=== PATIENT | male | born 1955 | race Caucasian/White ===

== ENCOUNTER 2016-04-13 18:56 | Emergency (ER) | payer BC ==
[~2016-04-13] VITALS: Ht 172.7 cm; Wt 65.8 kg
--- NOTE | ~2016-04-13 | EKG ---
[place], [place] ELECTROCARDIOGRAM REPORT NAME: LILY SILVA JR UNIT #: [id number] ROOM: DOCTOR: GABO GOEL MD BIRTHDATE: [birth year] DOS: 04/13/2016 TIME: 19 hour and 47 minutes. EKG shows sinus tachycardia with a heart rate of 109 beats per minute. Normal cardiac axis. Slight intraventricular conduction delay. Right bundle-branch block pattern. Single premature ventricular contraction. Nonspecific ST-T abnormality. Needs clinically correlated. GABO GOEL MD CM:EKGRPT:ELECTROCARDIOGRAM REPORT [id number] 1802 GABO GOEL MD
[~2016-04-13 18:56] MED LIST: ADVAIR; ADVAIR 250/501 EA INH; ALBUTEROL INHALER; ALBUTEROL0.09 MG/A2 IH; AMLODIPINE BESYL5 MG PO; ANTIBIOTIC O500 U/GM TP; ASPI-COR81 M1 PO; ATIVAN PO; ATIVAN1 MG PO; AUGMENTIN 875 M1 TAB PO; BACTRIM DS 8001 TA1 PO; CEFUROXIME AXE250 MG PO; CIPRO500 MG PO; CIPRODEX 0.3%-7.5 ML OT; CLARITIN10 MG PO; CLINDAMYCIN HC300 MG PO; COLCHICINE0.5 MG PO; COUMADIN2.5 M1 PO; CYCLOBENZAPRINE10 MG PO; DELTASONE10 MG PO; DOXYCYCLINE HY100 M5 PO; DUONEB 3 MG/3 ML3 M1 INH; DUONEB 3 MG/3 ML3 M1 NEB; FLUCONAZOLE100 MG PO; HYDROCODONE BIT1 T11 PO; IBU800 M1 PO; LEVAQUIN750 M1 PO; LEVEMIR10 ML SC; LIDOCAINE HCL100 M1 MM; Motrin,Rufen800 MG PO; NAPROSYN500 MG PO; NICOTINE T21 MG/24 H TD; NORCO 325 MG-51 TAB PO; NORCO 7.5-3251 EACH PO; NORVASC10 MG PO; NYSTATIN100000 U/M PO; OXYGEN NAS; PERCOCET 325 MG1 TA4 PO; PERCOCET 325 MG1 TA7 PO; PLAVIX75 MG PO; PREDNISONE10 MG PO; PREDNISONE5 MG PO; PREDNISONE50 MG PO; PULMICORT RESP0.5 MG INH; SYMBICORT1 AE1 INH; SYNTHROID0.025 MG PO; Synthroid,Levo50 MCG PO; TRAMADOL HCL50 MG PO; ULTRAM50 MG PO; VENTOLIN H0.09 MG/AC INH; VIBRAMYCIN100 MG PO; VITAMIN D31000 IU PO; VITAMIN D32000 IU PO; VOLTAREN50 M1 PO; ZANTAC 150150 MG PO; ZITHROMAX Z PA250 MG PO; ZITHROMAX250 MG PO; [UNRECOGNIZED DRUG - OTHER]
[2016-04-13] MEDS ORDERED: OXYGEN NAS (19:22)
[2016-04-13 19:43] LABS: BASO # 0.1 10*3/uL (0.0-0.1); EOS # 0.3 10*3/uL (0.0-0.4); EOS % 2.6 % (1.0-4.0); HEMATOCRIT 48.5 % (42.0-52.0); HEMOGLOBIN 17.1 g/dl (14.0-18.0); IG # 0.1 10*3/uL (0.0-0.1); LYMPH # 1.2 10*3/uL (1.3-4.4); LYMPH % 11.6 % (27.0-41.0); MEAN CELL VOLUME 98.4 fl (80.0-94.0); MEAN CORPUSCULAR HGB 34.7 pg (27.0-31.0); MEAN CORPUSCULAR HGB CONC 35.3 g/dl (33.0-37.0); MEAN PLATELET VOLUME 9.4 fl (9.6-12.3); MONO # 1.1 10*3/uL (0.1-1.0); MONO % 10.9 % (3.0-9.0); NEUT # 7.5 10*3/uL (2.3-7.9); NEUT % 73.2 % (47.0-73.0); PLATELET COUNT AUTOMATED 238 10*3/uL (130-400); RED BLOOD COUNT 4.93 10*6/uL (4.50-5.90); RED CELL DISTRI WIDTH 12.3 % (0-14.5); WHITE BLOOD COUNT 10.2 10*3/uL (4.8-10.8)
[2016-04-13 19:52] LABS: PROTHROMBIN TIME 10.1 SECONDS (9.0-12.4)
[2016-04-13 20:00] LABS: ALBUMIN 3.9 gm/dl (3.1-4.5); ALKALINE PHOSPHATASE 60 U/L (45-117); BILIRUBIN, TOTAL 1.5 mg/dl (0.2-1.0); BUN 9 mg/dl (7-24); CARBON DIOXIDE 23 mmol/L (21-32); CHLORIDE 97 mmol/L (98-107); EST GLOM FILT AFRICAN AMERICAN > 60 ml/min; GLUCOSE 111 mg/dL (65-99); MAGNESIUM 1.8 mg/dL (1.5-2.1); POTASSIUM 3.6 mmol/L (3.5-5.1); SGOT/AST 24 IU/L (3-35); SGPT/ALT 35 U/L (12-78); SODIUM 137 mmol/L (136-145); TOTAL PROTEIN 7.7 gm/dL (6.4-8.2)
[2016-04-13 20:01] LABS: TROPONIN I < 0.015 ng/ml (<0.5)
[2016-04-13] MEDS ORDERED: PREDNISONE20 M1 PO (21:17)
[2016-04-13] MEDS ORDERED: LEVOFLOXACIN500 MG PO (21:17)
== END 2016-04-13 21:23 | disposition home or self-care (01) ==
LOC: ED 18:56
PROVIDERS: Emergency Medicine Emergency Medical Services
DX: J44.1 Chronic obstructive pulmonary disease with (acute) exacerbation (principal); F17.200 Nicotine dependence, unspecified, uncomplicated; J96.01 Acute respiratory failure with hypoxia; Z98.41 Cataract extraction status, right eye; Z98.890 Other specified postprocedural states; Z79.82 Long term (current) use of aspirin; Z88.0 Allergy status to penicillin

== ENCOUNTER 2016-07-25 14:54 | Inpatient (IN) | payer BC, OTHER ==
[~2016-07-25] VITALS: Ht 172.7 cm; Wt 70.8 kg
--- NOTE | ~2016-07-25 | PR ---
[place], [place] PROGRESS NOTE NAME: [facility] JR [id number] UNIT #: [id number] ROOM: 408 DOCTOR: RADHA REAL,OUSMANE Oneill BIRTHDATE: [birth year] DOS: 07/28/2016 ADDENDUM Seen on 07/26/2016. After reviewing the chart, labs, radiographs, I agree with the above plans as outlined in the ID consult. We will follow the patient up clinically and adjust accordingly. OUSMANE GARCIA MD CM:PNTRANS [id number] OUSMANE GARCIA MD 07/28/16 1231 interface
--- NOTE | ~2016-07-25 | PR ---
[place], [place] PROGRESS NOTE NAME: LILY SILVA JR [facility] #: [id number] UNIT #: [id number] ROOM: 408 DOCTOR: GABO GOEL MD BIRTHDATE: [birth year] DOS: 07/27/2016 IMPRESSION: 1. The patient continues to have pain and swelling in his left hand and wrist, and he is being treated with IV vancomycin and meropenem, and being followed by Infectious Diseases and Surgery. 2. End-stage advanced chronic obstructive pulmonary disease with acute over chronic respiratory failure with centrilobular emphysema, stable at this time. 3. Chronic lumbar spondylosis with chronic lower back pains controlled with treatment. 4. Hypothyroidism, being replaced with thyroid supplements. GABO GOEL MD CM:PNTRANS [id number] GABO GOEL MD 07/28/16 0306 interface
--- NOTE | ~2016-07-25 | CON ---
[place], [place] REPORT OF CONSULTATION [id number] UNIT #: [id number] ROOM: 408 DOCTOR: TRA DUNCAN,JUNE BIRTHDATE: [birth year] DOS: HISTORY OF PRESENT ILLNESS: The patient is a 61-year-old male who had fallen at home in his garage on the and subsequently developed severe pain of the left wrist as well as swelling and he does have an abrasion on the left palm, which is fairly dry, no cultures have been obtained other than blood cultures, his blood cultures are negative. He again developed swelling, erythema, and pain of the palmar portion of the wrist and proximal hand. He has been afebrile. He has been receiving vancomycin, Merrem, and clindamycin. He is allergic to PENICILLIN. ID is consulted for left wrist and arm cellulitis. He does state it has been improving since he was admitted and started on antibiotics. He had a CT of the left upper extremity last night that did not demonstrate any fracture or necrotizing fasciitis, which was the concern originally when he was admitted. He has been seen by Dr. Chairez. PAST MEDICAL HISTORY: As above as well as COPD, peripheral vascular disease, tobacco and alcohol abuse. SOCIAL HISTORY: Normally lives at home. He smokes approximately a pack of cigarettes per day since he was a teenager. Alcoholic, he drinks approximately 10 beers every other day. Denies any illicit drug use. FAMILY MEDICAL HISTORY: Both parents are . Other history is unknown to the patient, not pertinent to chief complaint. ALLERGIES: Include PENICILLINS. CURRENT MEDICATIONS: Include vancomycin, Merrem, clindamycin, Zofran, [place], DuoNebs. LABORATORY DATA: Showed WBCs 10.2, platelets 279. BUN 5, creatinine 0.83. LFTs within normal limits. Albumin 4.1. REVIEW OF SYSTEMS: Alert and oriented. Denies any fevers, chills, no nausea or vomiting, no diarrhea, no rash or itch. No cough or shortness of breath. No headache or dizziness. No chest pain or palpitations. No peripheral edema, other than mild edema of the left wrist. He continues to complain of severe pain of the left wrist as well as difficulty with moving hand and wrist. Review of systems is otherwise unremarkable. PHYSICAL EXAMINATION: VITAL SIGNS: Show temperature 98.2, pulse 83, respirations 20, BP 132/65. GENERAL: A 61-year-old male who appears older than his stated age, in no acute distress. HEAD, EYES, EARS, NOSE, AND THROAT: Normocephalic, no thrush. Only few residual teeth. NECK: Supple. LUNGS: Diminished bilaterally with rhonchi. Respirations even and unlabored. HEART: Regular rhythm. No murmur appreciated. ABDOMEN: Soft, nondistended, positive bowel sounds. [place], [place] REPORT OF CONSULTATION NAME: LILY SILVA JR UNIT #: [id number] ROOM: 408 DOCTOR: TRA DUNCAN,JUNE BIRTHDATE: [birth year] EXTREMITIES: No lower extremity edema or deformity. Left wrist has mild swelling and mild erythema over the inner wrist with inability to do any range of motion of the wrist due to pain. Also, has limited range of motion of fingers due to pain. He has a small abrasion, which is rather dry on the left proximal palm. Erythema does not appear to extend up the forearm at this point. SKIN: Otherwise, warm, dry, and free of rashes. ASSESSMENT: Left upper extremity cellulitis due to trauma, status post fall. All scans have been negative for abscess or foreign body as well as fracture. PLAN: At this point in time, we will continue the Merrem and vancomycin, stop the clindamycin, gram-negative coverage is continued due to fracture that has resulted from trauma with fall on garage floor. Unfortunately, the wound is rather dry and would not yield a viable culture. Case is discussed with Dr. Ousmane Garcia. JUNE DAKOTA DUTTA OUSMANE GARCIA MD CM:CONSTR:REPORT OF CONSULTATION 1708 07/28/16 0342 interface
--- NOTE | ~2016-07-25 | WRIGHTHP ---
[place], [place] PATIENT HISTORY AND PHYSICAL EXAM NAME: LILY SILVA JR [facility] #: [id number] UNIT #: [id number] ROOM: 408 DOCTOR: GABO GOEL MD BIRTHDATE: [birth year] DOS: 07/26/2016 HISTORY OF PRESENT ILLNESS: The patient is a 61-year-old gentleman with a past medical history of, 1. Severe underlying chronic obstructive pulmonary disease with chronic respiratory failure. 2. Lumbar spondylosis with osteoarthritis and chronic lower back pains with bulging disk at L4-L5. 3. Hypothyroidism. 4. Severe peripheral vascular disease, status post angioplasty involving the right lower extremity with chronic pains. 5. History of alcohol abuse in the past. 6. History of nicotine smoke dependence. The patient presented with a fall at home the day before admission resulting in a puncture wound to the base of the right hand and he had rapidly spreading infection over his right wrist with significant pain and streaking and going over his right forearm towards his elbow with significant pains and difficulty in closing his right hand. The patient was sent to the Emergency Department and an x-ray was performed, which did not show any fracture and then after initial treatment with antibiotics, he was admitted for further management. The patient still has significant pain in his left hand, forearm and wrist. No complaints of chest pain, no increasing shortness of breath, no other GI or urinary symptoms. SYSTEMS REVIEW: LUNGS: No increasing shortness of breath or wheezing. GASTROINTESTINAL: No nausea, vomiting, diarrhea, or constipation. CARDIOVASCULAR SYSTEM: No chest pains or palpitations. FAMILY HISTORY: Noncontributory. HOME MEDICATIONS: DuoNebs, calcium, Vicodin. ALLERGIES: KNOWN ALLERGIES TO PENICILLIN. PHYSICAL EXAMINATION: GENERAL: Alert and oriented x 3, in no visible distress. VITAL SIGNS: Blood pressure 132/65, heart rate 83 beats per minute, breathing 20 times per minute, temperature 98.2 degrees Fahrenheit. HEENT AND NECK: Extraocular movements are intact. Sclerae are anicteric. Oral mucosa is moist and clean. No obvious facial weakness. Neck is supple without any lymphadenopathy. No thyromegaly. No JVD. No carotid arterial bruits. LUNGS: Decreased breath sounds all over. CARDIOVASCULAR SYSTEM: Heart rate is regular in rate and rhythm. S1 and S2 normally audible. No significant murmur or any other abnormal cardiac sounds. ABDOMEN: Soft, nontender. No obvious organomegaly. Bowel sounds are present. No obvious herniation. EXTREMITIES: The patient's base of left hand with left wrist showing some swelling, redness and tenderness. No fluctuation. [place], [place] PATIENT HISTORY AND PHYSICAL EXAM NAME: LILY SILVA JR UNIT #: [id number] ROOM: [facility] DOCTOR: GABO GOEL MD BIRTHDATE: [birth year] CENTRAL NERVOUS SYSTEM: Alert and oriented x 3. Cranial nerves II-XII are intact. Speech is normal. The patient is able to move all extremities. Normal muscle strength. Deep tendon reflexes are equal on both sides. Plantars were downgoing. IMPRESSION: The patient with cellulitis and some deep tissue infection with difficulty with closing the left hand with spreading infection, which apparently is getting controlled with present antibiotic treatment with meropenem and IV vancomycin. Clindamycin has been stopped. We will continue treatment. 1. Endstage chronic obstructive pulmonary disease with oxygen dependence, stable at this time and chronic respiratory failure and centrilobular emphysema. 2. Chronic lumbar spondylosis with chronic lower back pains controlled with pain meds. 3. Hypothyroidism, replaced with thyroid supplements. GABO GOEL MD CM:HISPHYS:PATIENT HISTORY AND PHYSICAL EXAMINATION 27 02 GABO GOEL MD 07/26/16 2004 interface
[~2016-07-25 14:54] MED LIST changes: +LEVOFLOXACIN500 MG PO; +PREDNISONE20 M1 PO
[2016-07-25 15:24] VITALS: BP 162/88
[2016-07-25 15:58] LABS: BASO # 0.1 10*3/uL (0.0-0.1); EOS # 0.1 10*3/uL (0.0-0.4); EOS % 1.1 % (1.0-4.0); HEMATOCRIT 46.6 % (42.0-52.0); HEMOGLOBIN 16.7 g/dl (14.0-18.0); IG # 0.1 10*3/uL (0.0-0.1); LYMPH # 1.8 10*3/uL (1.3-4.4); LYMPH % 17.3 % (27.0-41.0); MEAN CELL VOLUME 95.5 fl (80.0-94.0); MEAN CORPUSCULAR HGB 34.2 pg (27.0-31.0); MEAN CORPUSCULAR HGB CONC 35.8 g/dl (33.0-37.0); MEAN PLATELET VOLUME 8.9 fl (9.6-12.3); MONO # 0.9 10*3/uL (0.1-1.0); MONO % 8.9 % (3.0-9.0); NEUT # 7.3 10*3/uL (2.3-7.9); NEUT % 71.2 % (47.0-73.0); PLATELET COUNT AUTOMATED 279 10*3/uL (130-400); RED BLOOD COUNT 4.88 10*6/uL (4.50-5.90); RED CELL DISTRI WIDTH 13.2 % (0-14.5); WHITE BLOOD COUNT 10.2 10*3/uL (4.8-10.8)
[2016-07-25 16:06] LABS: PROTHROMBIN TIME 10.4 SECONDS (9.0-12.4)
[2016-07-25 16:11] LABS: ALBUMIN 4.1 gm/dl (3.1-4.5); ALKALINE PHOSPHATASE 63 U/L (45-117); BUN 5 mg/dl (7-24); CARBON DIOXIDE 26 mmol/L (21-32); CHLORIDE 98 mmol/L (98-107); EST GLOM FILT AFRICAN AMERICAN > 60 ml/min; GLUCOSE 124 mg/dL (65-99); SGOT/AST 20 IU/L (3-35); SGPT/ALT 19 U/L (12-78); SODIUM 135 mmol/L (136-145); TOTAL PROTEIN 7.9 gm/dL (6.4-8.2)
[2016-07-25 17:45] VITALS: BP 125/81
[2016-07-25 18:29] VITALS: BP 131/86
[2016-07-25 19:00] VITALS: BP 154/91
[2016-07-25] MEDS ORDERED: ZANTAC 300300 MG PO (19:03)
[2016-07-25 20:00] VITALS: BP 152/78
[2016-07-26] VITALS: BP 114/71
[2016-07-26 08:00] VITALS: BP 109/68
[2016-07-26 12:00] VITALS: BP 155/92
[2016-07-26 16:00] VITALS: BP 132/65
[2016-07-26 20:00] VITALS: BP 148/78
[2016-07-26 23:37] VITALS: BP 144/84
[2016-07-27 08:00] VITALS: BP 139/80
[2016-07-27 12:00] VITALS: BP 155/86
[2016-07-27 16:00] VITALS: BP 141/78
[2016-07-27 20:00] VITALS: BP 128/76
== END 2016-07-27 21:57 | disposition short-term general hospital (02) | DRG 603 ==
LOC: ED 14:54 → EDHOLD 17:39 → 4E 18:18
PROVIDERS: Nurse Practitioner Family
DX: L03.116 Cellulitis of left lower limb (principal); J96.10 Chronic respiratory failure, unspecified whether with hypoxia or hypercapnia; E03.9 Hypothyroidism, unspecified; J43.2 Centrilobular emphysema; F17.200 Nicotine dependence, unspecified, uncomplicated; F17.210 Nicotine dependence, cigarettes, uncomplicated; M47.896 Other spondylosis, lumbar region; G89.29 Other chronic pain; M54.5 Low back pain; Z88.0 Allergy status to penicillin; Z91.81 History of falling; Z87.828 Personal history of other (healed) physical injury and trauma

== ENCOUNTER 2016-08-17 13:19 | Emergency (ER) | payer BC, OTHER ==
[~2016-08-17] VITALS: Ht 172.7 cm; Wt 68.0 kg
[~2016-08-17 13:19] MED LIST changes: +ZANTAC 300300 MG PO
== END 2016-08-17 15:06 | disposition home or self-care (01) ==
LOC: ED 13:19
DX: S90.31XA Contusion of right foot, initial encounter (principal); F17.200 Nicotine dependence, unspecified, uncomplicated; J44.9 Chronic obstructive pulmonary disease, unspecified; E03.9 Hypothyroidism, unspecified; Z88.0 Allergy status to penicillin; Z79.899 Other long term (current) drug therapy; Z79.82 Long term (current) use of aspirin; X58.XXXA Exposure to other specified factors, initial encounter; Y93.89 Activity, other specified; Y92.89 Other specified places as the place of occurrence of the external cause; Y99.8 Other external cause status

== ENCOUNTER 2016-08-29 17:37 | Inpatient (IN) | payer BC, OTHER ==
[~2016-08-29] VITALS: Ht 172.7 cm; Wt 69.4 kg
--- NOTE | ~2016-08-29 | DS ---
[place], [place] DISCHARGE SUMMARY NAME: LILY SILVA JR UNIT #: [id number] ROOM: 511 DOCTOR: MANASA REALGABO Price BIRTHDATE: [birth year] DOS: 08/31/2016 DISCHARGE DIAGNOSES: 1. Exacerbation of severe underlying chronic obstructive pulmonary disease with acute over chronic respiratory failure, chronic lumbar spondylosis with chronic lower back pains. 2. Nicotine smoke dependence. 3. Hypothyroidism. 4. Severe peripheral vascular disease, status post angioplasty involving the right lower extremity and chronic pains. 5. History of alcohol dependence in the past. HOSPITAL COURSE: The patient was admitted with acute respiratory failure and treated with BiPAP, bronchodilators, corticosteroids and oxygen. The patient presented with acute over chronic respiratory failure. He normally requires oxygen at home. Despite of advanced lung disease, still smokes up to 1 pack of cigarettes a day. The patient was admitted and started on nicotine patch and encouraged to stop smoking cigarettes. With use of corticosteroids, oxygen and antibiotics his breathing has improved and he appears to be at his baseline now, so he will be discharged to home on tapering down dose of prednisone and he will also take ciprofloxacin and continue his nebulizer treatment and oxygen and follow up with me on Thursday. Sputum cultures were ordered and grew normal ashley. Blood cultures were negative. Consult with pulmonary primary health care nurse, Dr. Mora, was obtained. Generalized anxiety disorder. The patient continued on lorazepam, which he was taking at home. Benign essential hypertension. Blood pressures are controlled. I continued his amlodipine. LABORATORY DATA: Blood gases are baseline prior to discharge. DISCHARGE MANAGEMENT: Nicotine patch 21 mg daily, famotine 10 mg a day, Plavix 75 mg a day, aspirin 81 mg a day, amlodipine 10 mg a day, Medrol Dosepak, levothyroxine 50 mcg daily, Symbicort b.i.d., DuoNeb every 4 hours as needed, Cipro 500 mg twice a day for a week, Vicodin q.i.d. p.r.n., lorazepam 1 mg t.i.d. p.r.n. for anxiety. Follow up with me in the office on Thursday. [place], [place] DISCHARGE SUMMARY NAME: LILY SILVA JR UNIT #: [id number] ROOM: 511 DOCTOR: GABO GOEL MD BIRTHDATE: [birth year] GABO GOEL MD CM:MICHAEL 1649 1730 GABO GOEL MD 08/31/16 1729 interface
--- NOTE | ~2016-08-29 | WRIGHTHP ---
[place], [place] PATIENT HISTORY AND PHYSICAL EXAM NAME: LILY SILVA JR [facility] #: [id number] UNIT #: [id number] ROOM: 511 DOCTOR: GABO GOEL MD BIRTHDATE: [birth year] DOS: 08/29/2016 HISTORY OF PRESENT ILLNESS: The patient is a 61-year-old gentleman with a past medical history of: 1. Advanced end-stage COPD with chronic respiratory failure, on oxygen dependence. 2. Nicotine smoke dependence. 3. Chronic lumbar spondylosis with chronic lower back pains. 4. Hypothyroidism. 5. Peripheral vascular disease, status post angioplasty involving right lower extremity and chronic pains. 6. History of alcohol dependence in the past. The patient presented to Emergency Department with increased shortness of breath and cough with purulent sputum, starting yesterday. No complaint of any chest pain, dizziness or fainting episode. The patient was in acute respiratory failure in the Emergency Department and required BiPAP, nebulizer treatments, antibiotics and corticosteroids. He was moved to ICU for further treatment. The patient says he is feeling much better, but still has significant amount of purulent sputum. REVIEW OF SYSTEMS: CARDIOVASCULAR: No chest pain or palpitation. GASTROINTESTINAL: No nausea, vomiting, diarrhea, constipation. LUNGS: Increased shortness of breath and wheezing. FAMILY HISTORY: Noncontributory. HOME MEDICATIONS: Nicotine patch, Pepcid, Plavix, aspirin, amlodipine, levothyroxine, Symbicort, DuoNebs, Vicodin, lorazepam. PHYSICAL EXAMINATION: GENERAL: Alert and oriented x3, in no visible distress. HEENT AND NECK: Extraocular movements are intact. Sclerae are anicteric. Oral mucosa is moist and clean. No obvious facial weakness. Neck is supple without any lymphadenopathy. No thyromegaly. No JVD. No carotid arterial bruits. LUNGS: Generalized expiratory wheezing all over and decreased breath sounds on lung auscultation. CARDIOVASCULAR SYSTEM: Heart rate is regular in rate and rhythm. S1 and S2 normally audible. No significant murmur or any other abnormal cardiac sounds. ABDOMEN: Soft, nontender. No obvious organomegaly. Bowel sounds are present. No obvious herniation. EXTREMITIES: Without significant cyanosis or edema. Warm to touch. CENTRAL NERVOUS SYSTEM: Alert and oriented x3. Cranial nerves II-XII are intact. Speech is normal. The patient is able to move all extremities. Normal muscle strength. Deep tendon reflexes are equal on both sides. Plantars were downgoing. IMPRESSION AND PLAN: 1. Acute over chronic respiratory failure, treated with BiPAP, nebulizer treatments, oxygen and corticosteroids and he is already starting to feel [place], [place] PATIENT HISTORY AND PHYSICAL EXAM [id number] UNIT #: [id number] ROOM: 511 DOCTOR: GABO GOEL MD BIRTHDATE: [birth year] better. I will transfer him to intermediate monitored bed and follow him closely. The patient maintains a DO NOT INTUBATE code status. The patient is being treated with nebulizers, oxygen, DuoNebs, corticosteroids and antibiotics and Dr. Mora, the telephone lineworker, is following him. 2. Check sputum cultures. 3. Benign essential hypertension. Continue amlodipine. Monitor his blood pressures. 4. Generalized anxiety disorder treated with p.r.n. lorazepam, which has been continued. 5. Severe peripheral arterial disease. The patient continued on aspirin and Plavix and chronic lower extremity pains which is controlled with Vicodin. GABO GOEL MD CM:HISPHYS:PATIENT HISTORY AND PHYSICAL EXAMINATION 1441 1550 GABO GOEL MD 08/30/16 1549 interface
--- NOTE | ~2016-08-29 | PR ---
[place], [place] PROGRESS NOTE NAME: LILY SILVA JR [facility] #: [id number] UNIT #: [id number] ROOM: 511 DOCTOR: ALCIDES JORGENSEN MD,MELISSA BIRTHDATE: [birth year] DOS: 08/31/2016 SUBJECTIVE: He has been transferred from the intensive care unit to telemetry floor. The patient yesterday ____ he has been noted awake and alert at this time without any acute distress. The shortness of breath and cough of the patient has been noted decreased. Denies any symptoms of chest pain. OBJECTIVE: VITAL SIGNS: For the patient, which has been recorded showed the temperature as normal. The respiratory rate of the patient recorded as 20, heart rate of 90, blood pressure 129/68. The pulse oxygen saturation of the patient was noted as 95% on 3 liters nasal cannula. HEENT: Showed no acute change. NECK: Supple. CARDIOVASCULAR: S1, S2 audible. LUNGS: The patient was noted without any wheeze or crackles at the present time. ABDOMEN: Soft and nontender. LABORATORY DATA: Blood culture for the patient showed no bacterial growth from the 16th of this month. Arterial blood gas for the patient on 4 liters that was done yesterday showed pH of 7.44, pCO2 of 35, pO2 of 73.7. IMPRESSION: The patient who has been currently noted with acute severe hypoxic respiratory failure. The patient with acute exacerbation of chronic obstructive pulmonary disease, which has been improving gradually. PLAN OF TREATMENT: Continue bronchodilators and corticosteroids at current dose. Usual care. BiPAP use of the patient is agreeable with the patient. MELISSA MCGRATH MD CM:PNTRANS 1008 26 MELISSA JORGENSEN MD 08/31/162225 interface
--- NOTE | ~2016-08-29 | CON ---
[place], [place] REPORT OF CONSULTATION NAME: LILY SILVA JR [facility] #: [id number] UNIT #: [id number] ROOM: 511 DOCTOR: MELISSA ELIZABETH MD BIRTHDATE: [birth year] DOS: 08/30/2016 REQUESTING PHYSICIAN: Dr. Hawkins. REASON FOR CONSULTATION: Assess the patient for acute respiratory failure. HISTORY OF PRESENT ILLNESS: This is a 61-year-old white male with history of chronic nicotine dependency as well as a history of chronic hypoxic respiratory failure with COPD, presented to the hospital and admitted to the hospital under the care of Dr. Hawkins. The patient presented to the Emergency on 08/29/2016. He reported symptoms of severe shortness breath, which occurred when he was trying to move a tree in his driveway. The patient stated that he was not using the oxygen and became very short of breath. The symptoms of shortness of breath have been noted significantly worsening. He denies symptoms of chest pain. He does have some cough without any sputum expectoration. Denies symptoms of chest pain. He does complain of increased wheezing as well. He has been admitted to the hospital at this time and being managed for current worsening of the acute respiratory status that has been present on this admission. His oxygen saturation was noted only 78% upon arrival in the Emergency Room. REVIEW OF SYSTEMS: CONSTITUTIONAL: Denies symptoms of fever or chills. Complaining of fatigue. Denied change in appetite or any abnormal weight loss. CARDIOVASCULAR: Denies anginal pain, palpitations or edema of the extremities. EYES: Denies any burning, redness, or tenderness. EARS, NOSE, THROAT: No sore throat, hoarseness, otalgia, postnasal drainage. GASTROINTESTINAL: Denies dysphagia, nausea, vomiting, diarrhea, abdominal pain, hematemesis, melena, hematochezia, abnormal weight loss. GENITOURINARY: Denies dysuria, suprapubic pain, hematuria. MUSCULOSKELETAL: Denies acute joint pain, redness, or tenderness. SKIN: No lesions or rashes. CENTRAL NERVOUS SYSTEM: Denies dizziness, headache, diplopia or syncopal episodes. Remaining systems were reviewed with the patient, they were noted all negative. PAST MEDICAL HISTORY: 1. Noted with last hospitalization in this hospital on 07/27/2016. At that time, the patient has been noted with findings of cellulitis of right hand after the puncture wound. The patient was treated with antibiotic and noted complete resolution of the problems. 2. Known with history of severe centrilobular emphysema. 3. History of chronic hypoxic respiratory failure, use of oxygen. 4. History of alcohol use as well and dependence. 5. Chronic nicotine dependence as well. 6. Peripheral vascular disease. 7. Hypothyroidism. PAST SURGICAL HISTORY: 1. Noted for fiberoptic bronchoscopy. [place], [place] REPORT OF CONSULTATION NAME: LILY SILVA JR UNIT #: [id number] ROOM: [facility] DOCTOR: ALCIDES JORGENSEN MD,MELISSA BIRTHDATE: [birth year] 2. Cataract extraction with lens implantation. 3. Peripheral vascular disease intervention with the stents insertion. SOCIAL HISTORY: The patient is and lives at home. Denies history of alcohol use or any illicit drug use. Tobacco use was noted intermittently since teenager up to a pack of cigarettes per day, stating that he will be trying to quit smoking cigarettes again. FAMILY HISTORY: The father from complications related to the end-stage chronic obstructive pulmonary disease. MEDICATIONS: The medications at this time administered use of nicotine replacement patches, Pepcid, Plavix, aspirin, Norvasc, IV Solu-Medrol 20 mg q. 8h., levothyroxine, Rocephin, DuoNeb, Ativan and other p.r.n. medications. DRUG ALLERGIES: NOTED ALLERGY TO PENICILLIN CAUSING NAUSEA AND VOMITING. PHYSICAL EXAMINATION: GENERAL: A 61-year-old white male, currently sitting on his bed without any distress. Height of 5 feet 8 inches, weight of 153 pounds, BMI 23.2. VITAL SIGNS: Recorded as normal temperature, respiratory recorded 14-24, heart rate of 98-127. The blood pressure 151/87-140/84. HEENT: Examination shows head was atraumatic. Eyes: No icterus. Neck was supple. CARDIOVASCULAR: S1, S2 is audible. LUNGS: The patient was noted without any crackles. Expiratory wheezing noted, decreased breath sounds. ABDOMEN: Flat, soft, nontender. Bowel sounds present. EXTREMITIES: Show no edema, clubbing or cyanosis. SKIN: No lesions or rashes of the visible areas. CENTRAL NERVOUS SYSTEM: Cranial nerves 2-12 intact. No focal deficit. MUSCULOSKELETAL: No deformities. LABORATORY DATA: The patient's CBC yesterday on admission, WBC count 13.8, hemoglobin and hematocrit was normal. The platelet count was noted as normal. The lactic acid 1.3. CMP of 08/29/2016 shows glucose 140, BUN and creatinine was normal. Bilirubin 1.6. PT and PTT were noted normal yesterday. The arterial blood gas of the patient that was done on the BiPAP with 75% oxygen, pH of 7.42, pCO2 of 36, pO2 of 109. This was done in the setting of 28/10. Sputum culture of the patient showed many white blood cells, moderate epithelial cells, few gram-positive cocci in pairs and chains and few gram-positive bacilli. The chest x-ray which was done, 1 view, in the Emergency Room that was reviewed shows hyperinflation without any acute pulmonary infiltration. IMPRESSION: 1. The patient acute hypoxic respiratory failure as a result of acute exacerbation of chronic obstructive pulmonary disease and acute bacterial bronchitis. 2. History of noncompliance, chronic nicotine abuse as well. [place], [place] REPORT OF CONSULTATION NAME: LILY SILVA JR UNIT #: [id number] ROOM: 511 DOCTOR: MELISSA ELIZABETH MD BIRTHDATE: [birth year] PLAN OF TREATMENT: The patient has been responding to current treatment, will be continuing the BiPAP intermittently. Reduction of the oxygen supplementation based on the improvement of the oxygen. Saturation this morning noted on use of oxygen supplementation with the nasal cannula. Continuation of the current dose of corticosteroids, bronchodilators and the antibiotics. Repeat another blood gas of the patient to assess the improvement with oxygenation for today. Nicotine replacement patches to be continued as previously. Other supportive therapy and plan of management to be continued as well. Usual medical management. Further treatment changes to be done based on the progression of the illness. MELISSA MCGRATH MD CM:CONSTR:REPORT OF CONSULTATION 1502 08/31/16 0132 interface
[2016-08-29 17:46] VITALS: BP 149/80
[2016-08-29 18:02] LABS: BASO # 0.1 10*3/uL (0.0-0.1); BASO % 0.7 % (0.0-1.0); EOS # 0.1 10*3/uL (0.0-0.4); EOS % 0.9 % (1.0-4.0); HEMATOCRIT 49.3 % (42.0-52.0); HEMOGLOBIN 17.4 g/dl (14.0-18.0); IG # 0.1 10*3/uL (0.0-0.1); LYMPH # 0.9 10*3/uL (1.3-4.4); LYMPH % 6.2 % (27.0-41.0); MEAN CELL VOLUME 96.3 fl (80.0-94.0); MEAN CORPUSCULAR HGB CONC 35.3 g/dl (33.0-37.0); MEAN PLATELET VOLUME 8.8 fl (9.6-12.3); MONO % 7.1 % (3.0-9.0); NEUT # 11.7 10*3/uL (2.3-7.9); NEUT % 84.7 % (47.0-73.0); PLATELET COUNT AUTOMATED 254 10*3/uL (130-400); RED BLOOD COUNT 5.12 10*6/uL (4.50-5.90); RED CELL DISTRI WIDTH 13.6 % (0-14.5); WHITE BLOOD COUNT 13.8 10*3/uL (4.8-10.8)
[2016-08-29 18:04] VITALS: BP 138/78
[2016-08-29] MEDS ORDERED: Clopidogrel75 MG PO (18:09)
[2016-08-29] MEDS ORDERED: ASPIRIN81 M1 PO (18:09)
[2016-08-29] MEDS ORDERED: AMLODIPINE BESY10 MG PO (18:11)
[2016-08-29] MEDS ORDERED: LEVOTHYROXINE0.05 MG PO (18:11)
[2016-08-29] MEDS ORDERED: HYDROCODONE BIT1 T28 PO (18:11)
[2016-08-29] MEDS ORDERED: ATIVAN1 MG PO (18:12)
[2016-08-29] MEDS ORDERED: VITAMIN D400 I1 PO (18:12)
[2016-08-29] MEDS ORDERED: ACID REDUCER75 MG PO (18:12)
[2016-08-29] MEDS ORDERED: ATROVENT I0.5 MG/2.1 INH (18:13)
[2016-08-29] MEDS ORDERED: NICOTINE PATCH1 EAC1 TD (18:13)
[2016-08-29] MEDS ORDERED: SYMBICORT1 AE1 INH (18:13)
[2016-08-29 18:20] LABS: ALKALINE PHOSPHATASE 65 U/L (45-117); BILIRUBIN, TOTAL 1.6 mg/dl (0.2-1.0); BUN 11 mg/dl (7-24); CARBON DIOXIDE 26 mmol/L (21-32); CHLORIDE 100 mmol/L (98-107); CKMB 1.9 ng/ml (0.5-3.6); CPK 65 U/L (39-308); EST GLOM FILT AFRICAN AMERICAN > 60 ml/min; GLUCOSE 140 mg/dL (65-99); MAGNESIUM 1.9 mg/dL (1.5-2.1); SGOT/AST 12 IU/L (3-35); SGPT/ALT 18 U/L (12-78); SODIUM 137 mmol/L (136-145)
[2016-08-29 18:26] LABS: TROPONIN I < 0.015 ng/ml (<0.045)
[2016-08-29 18:29] LABS: PROTHROMBIN TIME 10.7 SECONDS (9.0-12.4)
[2016-08-29 19:19] VITALS: BP 134/82
[2016-08-29 20:20] VITALS: BP 140/87
[2016-08-29 20:40] VITALS: BP 148/103
[2016-08-29] MEDS ORDERED: DUONEB 3 MG/3 ML3 M1 INH (20:57)
[2016-08-29] MEDS ORDERED: NORCO 7.5-3251 EACH PO (20:59)
[2016-08-29] MEDS ORDERED: VITAMIN D1000 IU PO (21:02)
[2016-08-29 21:45] LABS: ABG BASE EXCESS 0.3 mmol/L (-2.0-2.0); ABG HCO3 23.8 mmol/l (22-26); ABG TEMPERATURE 98.2 F (98.0-99.0); ARTERIAL BLOOD GAS PH 7.429 (7.35-7.45)
[2016-08-30] VITALS (7 sets, daily range): BP systolic 113–151; BP diastolic 75–87
[2016-08-30 15:33] LABS: ABG CO2 CONTENT 25.3 mmol/L (23-27); ABG HCO3 24.2 mmol/l (22-26); ABG TEMPERATURE 98.1 F (98.0-99.0); ARTERIAL BLOOD GAS PH 7.449 (7.35-7.45); ARTERIAL BLOOD GAS PO2 73.7 mmHg (80-90)
[2016-08-31] VITALS: BP 124/70
[2016-08-31 08:00] VITALS: BP 129/68
[2016-08-31 12:00] VITALS: BP 135/73
[2016-08-31 16:00] VITALS: BP 137/81
[2016-08-31] MEDS ORDERED: KROGER NIC21 MG/24 H T (16:14)
[2016-08-31] MEDS ORDERED: MEDROL DOSEPAK4 MG PO (16:20)
[2016-08-31] MEDS ORDERED: CIPRO500 MG PO (16:20)
== END 2016-08-31 18:05 | disposition home or self-care (01) | DRG 871 ==
LOC: ED 17:37 → EDHOLD 18:41 → ICCU 19:04 → 5E 08-30 14:58
PROVIDERS: Emergency Medicine; Internal Medicine Critical Care Medicine
PROC: 5A09357 Assistance with Respiratory Ventilation, Less than 24 Consecutive Hours, Continuous Positive Airway Pressure (ICD-10-PCS; principal; 2016-08-29)
DX: A41.9 Sepsis, unspecified organism (principal); J18.9 Pneumonia, unspecified organism; J96.21 Acute and chronic respiratory failure with hypoxia; J44.1 Chronic obstructive pulmonary disease with (acute) exacerbation; J44.0 Chronic obstructive pulmonary disease with (acute) lower respiratory infection; F17.210 Nicotine dependence, cigarettes, uncomplicated; E03.9 Hypothyroidism, unspecified; I10 Essential (primary) hypertension; F41.1 Generalized anxiety disorder; I73.9 Peripheral vascular disease, unspecified; J20.9 Acute bronchitis, unspecified; Z96.1 Presence of intraocular lens; M47.896 Other spondylosis, lumbar region; G89.29 Other chronic pain; M54.5 Low back pain; F10.20 Alcohol dependence, uncomplicated; Z98.49 Cataract extraction status, unspecified eye; Z95.9 Presence of cardiac and vascular implant and graft, unspecified; Z82.5 Family history of asthma and other chronic lower respiratory diseases; Z88.0 Allergy status to penicillin; Z79.899 Other long term (current) drug therapy; Z79.82 Long term (current) use of aspirin; Z91.19 Patient's noncompliance with other medical treatment and regimen

== ENCOUNTER 2016-12-12 14:34 | Inpatient (IN) | payer BC, OTHER ==
[~2016-12-12] VITALS: Ht 172.7 cm; Wt 69.4 kg
--- NOTE | ~2016-12-12 | PR ---
[place], [place] PROGRESS NOTE NAME: LILY SILVA JR [facility] #: [id number] UNIT #: [id number] ROOM: 505 DOCTOR: MARYSOL BENOIT MD BIRTHDATE: [birth year] DOS: SUBJECTIVE: The patient is doing fine without any complaints, not had any bleeding. OBJECTIVE: VITAL SIGNS: Graphic trend shows pressure 132/74, pulse of 87, respirations 18, temperature 98.3. LUNGS: Clear. HEART: Regular. ABDOMEN: Obese, soft. EXTREMITIES: Without any edema. LABORATORY DATA: Shows WBC count of 5.3, hemoglobin 15.0, hematocrit 43.8, platelets 222. Basic glucose 173, BUN 5, creatinine 0.62, sodium 138, potassium 3.4, chloride 104. MRA of the abdomen shows renal artery stenosis, moderate on the right side, patent mesenteric arteries. ASSESSMENT AND PLAN: 1. Ischemic colitis with gastrointestinal bleed, stable without further drop in H and H. The patient can be discharged to home today. 2. CT of the abdomen and pelvis, celiac artery stenosis. This was not seen on the MRA of the abdomen, but the renal artery stenosis was seen and this patient will be restarted on the Plavix and will need to see Dr. Muniz possibly for a stent placement. 3. Alcohol dependence, advised against drinking. MARYSOL BENOIT MD CM:PNTRANS [phone] MARYSOL BENOIT MD 12/16/162229 interface
--- NOTE | ~2016-12-12 | PR ---
[place], [place] PROGRESS NOTE NAME: LILY SILVA JR [facility] #: [id number] UNIT #: [id number] ROOM: 505 DOCTOR: MARYSOL BENOIT MD BIRTHDATE: [birth year] DOS: SUBJECTIVE: The patient is doing much better, has not had any bleeds for more than 24 hours. OBJECTIVE: VITAL SIGNS: Graphic trend shows blood pressure 141/76, pulse of 81, respirations 20, temperature 98.4. LUNGS: Clear. HEART: Regular. ABDOMEN: Soft. EXTREMITIES: No edema. LABORATORY DATA: No labs available this morning. Blood cultures done and have come back negative. ASSESSMENT AND PLAN: 1. Gastrointestinal bleed, acute with ischemic colitis. Awaiting an MRA of the abdomen this morning. 2. Hypokalemia. Supplementation was given. Routine labs will be ordered for tomorrow. Hoping to give the patient a diet after the MRA is done. 3. Alcohol usage, but no evidence of DTs. Plan is to discharge him to home tomorrow. MARYSOL BENOIT MD CM:PNTRANS [phone] MARYSOL BENOIT MD 12/15/162022 interface
--- NOTE | ~2016-12-12 | O ---
[place], [place] OPERATIVE NOTE NAME: LILY SILVA JR UNIT #: [id number] ROOM: 505 DOCTOR: RAMÍREZ MURPHY MD BIRTHDATE: [birth year] DOS: 12/12/2016 INDICATIONS: The patient has presented with abdominal pain, cramps, blood in the stool to Emergency Room. PROCEDURE: Today's procedure part of investigation is colonoscopy plus biopsy. PREMEDICATION: Versed and Diprivan. SCOPE: Olympus folding colonoscope 10L video. REPORT: After putting the patient in left lateral position and application of lubricant to the scope, the scope was introduced. Thereafter, under direct visualization, I advanced through the length of colon without difficulty. Evidence of ischemic colitis from splenic flexure to mid transverse colon intensely was noticed. Areas of ischemia was biopsied. There was no evidence of bleeding from it. Despite aspirin and Plavix, this is due to the lack of circulation in the area. Right colon, base of cecum within normal limits. Proximal transverse colon within normal limits. Scattered diverticulosis noticed. Air was suctioned out. The patient was extubated, tolerated the procedure well. IMPRESSION: Distal transverse colon and proximal descending colon ischemic colitis, diverticulosis. Also, this patient has a large polypoid lesion in the mid descending colon, but we are not addressing that issue right now due to the need of Plavix and aspirin on board. PLAN: Flagyl 500 mg IV q. 8 hours, ciprofloxacin 400 mg IV b.i.d., continuation with IV hydration. We will hold his feeding one day and clear liquid after that. CBC and basic metabolic panel tomorrow and surgical consultation is going to be placed to Dr. Chairez. This patient has severe peripheral vascular disease and stenting and despite aspirin and Plavix and alcohol on board, he has still suffered ischemic colitis. At this time, we are going to conservatively observe him. Lactic acid is going to be done tomorrow again and clinical reassessment. [place], [place] OPERATIVE NOTE NAME: LILY SILVA JR UNIT #: [id number] ROOM: 505 DOCTOR: RAMÍREZ MURPHY MD BIRTHDATE: [birth year] RAMÍREZ MURPHY MD CM:CRISTINORD:OPERATIVE NOTE [id number] RAMÍREZ MURPHY MD 12/12/162330 interface
--- NOTE | ~2016-12-12 | CON ---
[place], [place] REPORT OF CONSULTATION NAME: LILY SILVA JR UNIT #: [id number] ROOM: 505 DOCTOR: RAMÍREZ MURPHY MD BIRTHDATE: [birth year] DOS: HISTORY OF PRESENT ILLNESS: This is a 61-year-old patient who presented to Emergency Room with abdominal cramp and subsequent bleeding rectally and abdominal pain. The patient had a CT scan of the abdomen consistent with suspected ischemic colitis. The patient had a CBC; white blood cell was 11, H and H of 18 and 53 with lactic acid of 0.9. Comprehensive metabolic panel, electrolyte balanced, liver function test within normal limits, lipase normal. INR was 1.0. CT scan of the abdomen details as outlined. PAST MEDICAL HISTORY: Associated with as soon as I could see there is abdominal pain and cramp as identified above. FAMILY HISTORY: Diabetes and COPD. SOCIAL HISTORY: Smoker, nonalcohol consumer. PAST SURGICAL HISTORY: Right leg and peripheral vascular disease and angioplasty and cardiac stent, cataract. MEDICATIONS: List has been reviewed , clopidogrel, aspirin and levothyroxine . PAST MEDICAL HISTORY: COPD, anxiety, chronic pain, peripheral vascular disease. REVIEW OF SYSTEMS: HEENT: Denies double vision, blurred vision. RESPIRATORY: Denies shortness of breath. CARDIOVASCULAR: Denies chest pain. DIGESTIVE SYSTEM: No hematemesis or hematochezia. Abdominal pain. EXTREMITIES: No cyanosis, no pedal edema. NEUROLOGIC: Alert, oriented to time, place and person. LUNGS: COPD, otherwise vesicular. HEART: Normal sinus rhythm. IMPRESSION: Abdominal pain, lower gastrointestinal bleed, ischemic colitis. PLAN AND DISCUSSION: We are going to proceed with colonoscopic evaluation. Labs reviewed, records reviewed, data reviewed. [place], [place] REPORT OF CONSULTATION NAME: LILY SILVA JR UNIT #: [id number] ROOM: 505 DOCTOR: RAMÍREZ MURPHY MD BIRTHDATE: [birth year] RAMÍREZ MURPHY MD CM:CONSTR:REPORT OF CONSULTATION 2208 12/13/16 0554 interface
--- NOTE | ~2016-12-12 | PR ---
[place], [place] PROGRESS NOTE NAME: LILY SILVA JR [facility] #: [id number] UNIT #: [id number] ROOM: 505 DOCTOR: MARYSOL BENOIT MD BIRTHDATE: [birth year] DOS: 12/14/2016 SUBJECTIVE: The patient had another episode of bleeding this morning. He is hungry and wants something to eat. He also had an episode where he had pain in the right side of his chest, mostly on inspiration or cough. OBJECTIVE: VITAL SIGNS: Blood pressure is 134/78, pulse of 98, respirations 20, temperature 97.7. LUNGS: Clear. HEART: Regular. ABDOMEN: Obese, soft. EXTREMITIES: Without any edema. LABORATORY DATA: WBC count is 9.5, hemoglobin 14.8, hematocrit 44.0, platelets 214. BMP: Glucose 93, BUN 6, creatinine 0.65, sodium 138, potassium 2.8, chloride 103, bicarbonate 25. CT of the chest did not show any evidence of PE, basilar atelectasis was seen. ASSESSMENT AND PLAN: 1. Acute gastrointestinal bleed, most likely ischemic colitis, celiac trunk atherosclerosis seen. MRA of the abdomen scheduled for Thursday. 2. Hypokalemia. Supplementation will be given. 3. Right-sided chest pain, most likely pleuritic from atelectasis. Incentive spirometry and breathing treatments could be ordered. 4. the patient to be kept n.p.o. MARYSOL BENOIT MD CM:PNTRANS [phone] MARYSOL BENOIT MD 12/14/16 9934 interface
--- NOTE | ~2016-12-12 | WRIGHTHP ---
[place], [place] PATIENT HISTORY AND PHYSICAL EXAM NAME: LILY SILVA JR [facility] #: [id number] UNIT #: [id number] ROOM: [facility] DOCTOR: MARYSOL BENOIT MD BIRTHDATE: [birth year] DOS: 12/12/2016 HISTORY OF PRESENT ILLNESS: This patient is very well known to us. He says that he was feeling fine until yesterday when he started having quite a lot of blood in his bowel movement and abdominal discomfort, so he came to the emergency room, he was evaluated and there suspicion of ischemic colitis was raised and therefore he was admitted. He does not have any complaints of chest pains, palpitations, does not have any fever or chills, does not have any nausea, any emesis. He has been drinking about 6 beers every day. He also drinks several cans of Diet Pepsi daily. PAST MEDICAL HISTORY: 1. COPD. 2. Alcohol dependence. 3. Tobacco dependence. 4. Hypothyroidism. 5. Peripheral vascular disease with history of angioplasty. 6. Benign hypertension. 7. Generalized anxiety disorder. MEDICATIONS: Symbicort 160 two puffs twice a day, DuoNeb q.4h., amlodipine 10 daily, aspirin 81 daily, vitamin D 1000 units daily, Plavix 75 daily, [place] 7.5 t.i.d. p.r.n., levothyroxine 50 mcg daily, lorazepam 1 mg daily p.r.n. for anxiety. SOCIAL HISTORY: Tobacco and alcohol dependence as above. PHYSICAL EXAMINATION: GENERAL: The patient is awake and alert and oriented. VITAL SIGNS: Blood pressure is 112/72, pulse of 90, respirations 20, temperature 98.2. LUNGS: Diminished breath sounds. HEART: Regular. ABDOMEN: Obese, slightly distended, diffusely tender. EXTREMITIES: Without any edema. LABORATORY DATA: WBC count is 11.5, hemoglobin 18.3, hematocrit 53.7, platelets 265, lactic acid 0.9. Comprehensive glucose 110, BUN 8, creatinine 0.81. Electrolytes were normal. CT of the abdomen and pelvis, thickening of the transverse colon with celiac trunk atherosclerosis. ASSESSMENT AND PLAN: 1. Ischemic colitis. The patient is on IV fluids, IV Flagyl, to be kept n.p.o. H and H did show some slight drop, but still within normal limits. Encouraged the patient not to drink alcohol. 2. Celiac artery atherosclerosis and MRA of the celiac plexus will need to be drawn. 3. Chronic obstructive pulmonary disease, stable without any exacerbation. 4. Chronic respiratory failure, oxygen dependent. 5. Benign hypertension, controlled. [place], [place] PATIENT HISTORY AND PHYSICAL EXAM NAME: LILY SILVA JR UNIT #: [id number] ROOM: [facility] DOCTOR: MARYSOL BENOIT MD BIRTHDATE: [birth year] 6. History of peripheral vascular disease, history of angioplasty in the past. His Plavix and aspirin has been discontinued because of the bleeding, we may have to restart the aspirin soon. MARYSOL BENOIT MD CM:HISPHYS:PATIENT HISTORY AND PHYSICAL EXAMINATION [id number] MARYSOL BENOIT MD 12/13/16 0933 interface
--- NOTE | ~2016-12-12 | DS ---
[place], [place] DISCHARGE SUMMARY NAME: LILY SILVA JR [facility] #: [id number] UNIT #: [id number] ROOM: 505 DOCTOR: MARYSOL BENOIT MD BIRTHDATE: [birth year] DOS: 12/16/2016 DIAGNOSES: 1. Acute ischemic colitis. 2. Alcohol dependence. Endoscopy, colonoscopy showing gastritis, diverticulosis, polyp in the descending colon. 3. Severe peripheral vascular disease, status post stent placement. Restart Plavix, but avoid aspirin and avoid alcohol. 4. Renal artery stenosis ____. The patient needs to be seen by Vascular Surgery again for possible stent placement. 5. Benign hypertension. 6. Chronic obstructive pulmonary disease. 7. Anxiety disorder. 8. Hypothyroidism. DISCHARGE MEDICATIONS: Same as on admission. New prescriptions were written were metronidazole 500 t.i.d. for 5 days, ____ 150 b.i.d., Plavix 75 daily, amlodipine 10 daily, levothyroxine 50 mcg daily, lorazepam 1 mg daily p.r.n., Symbicort 160 two puffs twice a day, DuoNeb 1. 4 hours, [place] 7.5 t.i.d. p.r.n., vitamin D 1000 units daily and nicotine patch 21 mcg. HOSPITAL COURSE: The patient is 61-year-old, very well known to us, comes in with bleeding per rectum. Please see H and P for details. After ischemic colitis was diagnosed, the patient was admitted to [facility]. Serial H and H did not show much drop in H and H. The patient has had a couple episodes of bleeding since he got admitted. The patient had a consultation with Dr. Almodovar. Endoscopy was performed along with colonoscopy showing gastritis and polyps. The patient has been stable without any new complaints. Initial CT scan showed the possibility of celiac artery stenosis, so an MRA of the abdomen was ordered, which did not show any celiac stenosis, but renal artery stenosis on the right side was noted. The patient will need to have a stent placement again for the renal artery stenosis as an outpatient. He has hypokalemia, supplementation will be given today. He is eating and is not having any abdominal pain or any active bleeds and the H and H is stable. So the plan is to discharge him to home to follow up with his PCP. [place], [place] DISCHARGE SUMMARY NAME: RICARDO MONKLILY Alena UNIT #: [id number] ROOM: 505 DOCTOR: MARYSOL BENOIT MD BIRTHDATE: [birth year] MARYSOL BENOIT MD CM:MICHAEL [phone] MARYSOL BENOIT MD 12/16/16 180 interface
[~2016-12-12 14:34] MED LIST changes: +ACID REDUCER75 MG PO; +AMLODIPINE BESY10 MG PO; +ASPIRIN81 M1 PO; +ATROVENT I0.5 MG/2.1 INH; +Clopidogrel75 MG PO; +HYDROCODONE BIT1 T28 PO; +KROGER NIC21 MG/24 H T; +LEVOTHYROXINE0.05 MG PO; +MEDROL DOSEPAK4 MG PO; +NICOTINE PATCH1 EAC1 TD; +VITAMIN D1000 IU PO; +VITAMIN D400 I1 PO
[2016-12-12 14:41] VITALS: BP 117/82
[2016-12-12 15:12] LABS: BASO # 0.1 10*3/uL (0.0-0.1); BASO % 0.8 % (0.0-1.0); EOS # 0.2 10*3/uL (0.0-0.4); EOS % 1.9 % (1.0-4.0); HEMATOCRIT 53.7 % (42.0-52.0); HEMOGLOBIN 18.3 g/dl (14.0-18.0); LYMPH # 1.2 10*3/uL (1.3-4.4); LYMPH % 10.6 % (27.0-41.0); MEAN CELL VOLUME 98.9 fl (80.0-94.0); MEAN CORPUSCULAR HGB 33.7 pg (27.0-31.0); MEAN CORPUSCULAR HGB CONC 34.1 g/dl (33.0-37.0); MEAN PLATELET VOLUME 9.3 fl (9.6-12.3); MONO # 0.9 10*3/uL (0.1-1.0); MONO % 8.2 % (3.0-9.0); NEUT % 78.1 % (47.0-73.0); PLATELET COUNT AUTOMATED 265 10*3/uL (130-400); RED BLOOD COUNT 5.43 10*6/uL (4.50-5.90); RED CELL DISTRI WIDTH 13.9 % (0-14.5); WHITE BLOOD COUNT 11.5 10*3/uL (4.8-10.8)
[2016-12-12 15:21] LABS: ACT PARTIAL THROMBO TIME 30.9 SECONDS (20.8-31.5)
[2016-12-12 15:26] LABS: ALBUMIN 3.3 gm/dl (3.1-4.5); ALKALINE PHOSPHATASE 58 U/L (45-117); BUN 8 mg/dl (7-24); CHLORIDE 101 mmol/L (98-107); CREATININE 0.81 mg/dL (0.70-1.30); LIPASE 111 U/L (73-393); POTASSIUM 3.6 mmol/L (3.5-5.1); SGOT/AST 19 IU/L (3-35); SGPT/ALT 23 U/L (12-78); SODIUM 135 mmol/L (136-145); TOTAL PROTEIN 7.4 gm/dL (6.4-8.2)
[2016-12-12 16:53] VITALS: BP 117/76
--- NOTE | 2016-12-12 17:15 | NUR ---
Time: 1704 A 61 year old male admitted to 5E under services of MARYSOL ESTEVEZ MD. Pt. arrived via stretcher from ER. Chief complaint: lower abdominal pain. tele applied oxygen on 2 liters JAKOB HOWARD
--- NOTE | 2016-12-12 17:37 | NUR ---
spoke to dr. hastings. he is going to do a colo on patient tonight. he is aware that he has taken plavix today at home. he wants a note placed on patients chart on the front "a big note that patient took plavix today". order to give tap water enema now.
--- NOTE | 2016-12-12 17:51 | NUR ---
DR. BENOIT AWARE OF ADMISSION AND THAT DR. MURPHY TO DO COLO TONIGHT. ORDERS GIVEN
--- NOTE | 2016-12-12 18:00 | NUR ---
HOME MEDICATION LIST UPDATED WITH RASHEEDA NUNEZ.
--- NOTE | 2016-12-12 19:00 | NUR ---
pt tolerated 2 tap water enemas. stool is liquidly with some solid brown stool. light pink noted in bedside commode. small blood clots noted. pt stated at this time he cannot tolerate any more enema he needed a "minute". made aware that next shift will have to attempt tap water enema to clear, pt agreeable.
[2016-12-12 20:00] VITALS: BP 116/73
[2016-12-12 20:02] LABS: BUN 9 mg/dl (7-24); CHLORIDE 101 mmol/L (98-107); CREATININE 0.79 mg/dL (0.70-1.30); POTASSIUM 3.5 mmol/L (3.5-5.1); SODIUM 135 mmol/L (136-145)
[2016-12-12 21:53] VITALS: BP 119/77
[2016-12-12 22:05] VITALS: BP 121/76
[2016-12-12 22:15] VITALS: BP 131/81
[2016-12-13] VITALS: BP 112/72
--- NOTE | 2016-12-13 06:27 | NUR ---
PATIENT MEDICATED WITH AMBIEN AND NORCO AT 2304 WITH EFFECTIVE RESULTS NOTED. PATIENT SLEPT WELL THROUGH THE NIGHT. NO SIGNS OR SYMPTOMS OF DISTRESS NOTED. WILL CONTINUE TO MONITOR. CALL LIGHT IN REACH.
[2016-12-13 06:45] LABS: BASO # 0.1 10*3/uL (0.0-0.1); BASO % 0.9 % (0.0-1.0); EOS # 0.3 10*3/uL (0.0-0.4); EOS % 2.7 % (1.0-4.0); LYMPH # 1.3 10*3/uL (1.3-4.4); LYMPH % 13.1 % (27.0-41.0); MEAN CELL VOLUME 100.6 fl (80.0-94.0); MEAN CORPUSCULAR HGB 34.3 pg (27.0-31.0); MEAN PLATELET VOLUME 9.6 fl (9.6-12.3); MONO # 0.9 10*3/uL (0.1-1.0); MONO % 9.3 % (3.0-9.0); NEUT # 7.4 10*3/uL (2.3-7.9); NEUT % 73.7 % (47.0-73.0); PLATELET COUNT AUTOMATED 211 10*3/uL (130-400); RED CELL DISTRI WIDTH 13.6 % (0-14.5); WHITE BLOOD COUNT 10.1 10*3/uL (4.8-10.8)
[2016-12-13 06:50] LABS: HEMATOCRIT 47.3 % (42.0-52.0); HEMOGLOBIN 16.1 g/dl (14.0-18.0)
--- NOTE | 2016-12-13 08:30 | NUR ---
Patient resting quietly with no c/o discomfort. Respirations easy and regular. Vital signs stable. No overt distress. THEODORA RAPP.
[2016-12-13 08:41] VITALS: BP 123/72
--- NOTE | 2016-12-13 11:44 | NUR ---
PT MEDICATED WITH PO NORCO PER PRN ORDER FOR C/O RIGHT SIDED ABD PAIN/DISCOMFORT. RATES PAIN 09/22. WILL MONITOR EFFECTIVENESS. CALL LIGHT WITHIN REACH.
[2016-12-13 12:29] VITALS: BP 129/68
--- NOTE | 2016-12-13 12:58 | NUR ---
NORCO EFFECTIVE PER PT. WILL CONTINUE TO MONITOR.
--- NOTE | 2016-12-13 15:30 | NUR ---
CALLED AT THIS TIME REGARDING DIET BEING ADVANCED. PATIENT IS TO MAINTAIN A CLEAR LIQUID DIET. NO EXCEPTIONS AT THIS TIME PER .
[2016-12-13 16:00] VITALS: BP 128/80
[2016-12-13 20:00] VITALS: BP 126/64
--- NOTE | 2016-12-13 20:56 | NUR ---
PATIENT COMPLAINING OF SHARP STABBING PAIN TO RIGHT CHEST AREA WITH BREATHING AND MOVEMENT. MEDICATED WITH NORCO AT 2003 WITH EFFECTIVE RESULTS NOTED. PATIENT SAID HE HAS HAD THE PAIN SINCE THIS MORNING. DR. BENOIT NOTIFIED. NEW ORDER FOR CTA OF CHEST AND CXR AND DILAUDID 0.5MG NOW. PATIENT DIDN'T WANT TO TAKE THE DILAUDID RIGHT NOW. WILL CONTINUE TO MONITOR. CALL LIGHT IN REACH.
--- NOTE | 2016-12-14 01:33 | NUR ---
BOTH IV'S IN LEFT AND RIGHT ANTECUBITALS INFILTRATED. NEW 24G INSERTED INTO LEFT HAND ON 2ND ATTEMPT WITHOUT DIFFICULTY. PATIENT TOLERATED PROCEDURE WELL. GOOD BLOOD RETURN AND FLUIDS RESTARTED. WILL CONTINUE TO MONITOR. CALL LIGHT IN REACH.
--- NOTE | 2016-12-14 04:16 | NUR ---
PATIENT MEDICATED WITH NORCO AT 0341 FOR COMPLAINTS OF RIGHT CHEST PAIN WITH EFFECTIVE RESULTS NOTED. RESTING IN BED WITH EYES CLOSED AT THIS TIIME. NO SIGNS OR SYMPTOMS OF DISTRESS NOTED. WILL CONTINUE TO MONITOR. CALL LIGHT IN REACH.
[2016-12-14 07:01] LABS: BASO # 0.1 10*3/uL (0.0-0.1); BASO % 0.6 % (0.0-1.0); EOS # 0.2 10*3/uL (0.0-0.4); EOS % 2.5 % (1.0-4.0); HEMOGLOBIN 14.8 g/dl (14.0-18.0); LYMPH # 0.9 10*3/uL (1.3-4.4); LYMPH % 9.4 % (27.0-41.0); MEAN CELL VOLUME 99.5 fl (80.0-94.0); MEAN CORPUSCULAR HGB 33.5 pg (27.0-31.0); MEAN CORPUSCULAR HGB CONC 33.6 g/dl (33.0-37.0); MEAN PLATELET VOLUME 9.5 fl (9.6-12.3); MONO # 0.9 10*3/uL (0.1-1.0); MONO % 9.6 % (3.0-9.0); NEUT # 7.3 10*3/uL (2.3-7.9); NEUT % 77.4 % (47.0-73.0); PLATELET COUNT AUTOMATED 214 10*3/uL (130-400); RED BLOOD COUNT 4.42 10*6/uL (4.50-5.90); RED CELL DISTRI WIDTH 13.4 % (0-14.5); WHITE BLOOD COUNT 9.5 10*3/uL (4.8-10.8)
[2016-12-14 07:27] LABS: BUN 6 mg/dl (7-24); CHLORIDE 103 mmol/L (98-107); CREATININE 0.65 mg/dL (0.70-1.30); POTASSIUM 2.8 mmol/L (3.5-5.1); SODIUM 138 mmol/L (136-145)
[2016-12-14 08:10] VITALS: BP 134/78
--- NOTE | 2016-12-14 10:05 | NUR ---
LEFT MESSAGE ON DR. MURPHY'S CELL PHONE RE: MOST RECENT CBC RESULTS.
--- NOTE | 2016-12-14 10:25 | NUR ---
DR. MURPHY NOTIFIED OF TODAY'S MOST RECENT CBC RESULTS AND OF BLOODY BM AT 4AM TODAY. NO NEW ORDERS OBTAINED.
--- NOTE | 2016-12-14 11:53 | NUR ---
PATIENT PASSED SCANT AMOUNT OF BLOOD VIA RECTUM WITH TWO LARGE CLOTS.
--- NOTE | 2016-12-14 11:59 | NUR ---
MEDICATED WITH PRN PO NORCO FOR RIGHT SIDE CHEST PAIN.
[2016-12-14 13:05] VITALS: BP 118/63
--- NOTE | 2016-12-14 13:23 | NUR ---
PRN PO NORCO EFFECTIVE, PER PATIENT.
--- NOTE | 2016-12-14 15:29 | NUR ---
PT RESTING IN BED, NO DISTRESS. NO VOICED C/O, WILL MONITOR
[2016-12-14 16:00] VITALS: BP 129/74
--- NOTE | 2016-12-14 19:30 | NUR ---
PT C/O PAIN IN ABDOMEN/ BILATERAL LEGS REQUESTED AND ADMINSITERED NORCO PO PRN WILL MONITOR EFFECTS.
[2016-12-14 20:00] VITALS: BP 136/78
--- NOTE | 2016-12-14 21:30 | NUR ---
PT NO LONGER C/O PAIN NORCO EFFECTIVE AT THIS TIME, CALL LIGHT WITH IN REACH
[2016-12-15] VITALS: BP 141/76
--- NOTE | 2016-12-15 | NUR ---
ASSUMED CARE OF PATIENT. ASSESSMENT COMPLETE. RESTING IN BED. CALL LIGHT IN REACH. WILL CONTINUE TO MONITOR.
--- NOTE | 2016-12-15 02:00 | NUR ---
SLEEPING. RESP EASY AND NONLABORED ON 2.5L NC. NO DISTRESS NOTED. CM INTACT. CALL LIGHT IN REACH. WILL CONTINUE TO MONITOR.
[2016-12-15 08:00] VITALS: BP 136/82
--- NOTE | 2016-12-15 08:00 | NUR ---
Patient resting quietly with no c/o discomfort. Respirations easy and regular. Vital signs stable. No overt distress. SUKHWINDER SHERMAN R
--- NOTE | 2016-12-15 08:30 | NUR ---
[employer] Programmer in to talk to patient. Patient states lives at [address] with HIS . There are SEVERAL steps in the home. Physician: DR GOEL Pharmacy: [facility] Home health services: NONE Patient's level of ADLs: INDEPENDENT Patient has working utilities: YES DME: NONE Follow-up physician's appointment after d/c: PREFERS TO MAKE HIS OWN APPT Does patient want to access PORTAL?: Discharge plan HOME. CORIN GUERRERO
[2016-12-15 12:00] VITALS: BP 120/77
--- NOTE | 2016-12-15 14:54 | NUR ---
DR BENOIT NOTIFIED OF THE RESULTS MRA OF ABD. DR BENOIT ADVANCED PT DIET FROM CLEAR LIQUIDS TO REG DIET.
[2016-12-15 16:00] VITALS: BP 147/50
[2016-12-15 20:00] VITALS: BP 132/76
--- NOTE | 2016-12-15 20:52 | NUR ---
PATIENT MEDICATED WITH PRN NORCO FOR C/O PAIN IN THE LEFT LEG RATED 10/10 ON A 0/10 PAIN SCALE
--- NOTE | 2016-12-15 21:56 | NUR ---
MED REC REVIEWED WITH PATIENT
[2016-12-16] VITALS: BP 129/74
--- NOTE | 2016-12-16 01:02 | NUR ---
24 HR chart check completed.
--- NOTE | 2016-12-16 02:59 | NUR ---
PATIENT MEDICATED WITH AMBIEN FOR SLEEPLESSNESS COMPLAINTS, AND NORCO FOR PAIN IN LEFT LEG RATED 9/10 ON A 0/10 PAIN SCALE
--- NOTE | 2016-12-16 04:26 | NUR ---
PATIENT RESTING IN BED WITH NO S/S OF DISTRESS. RESPS EASY AND REGULAR. BED IN LOWEST POSITOIN, CALL LIGHT IN REACH
[2016-12-16 07:28] LABS: BASO # 0.1 10*3/uL (0.0-0.1); BASO % 1.3 % (0.0-1.0); EOS # 0.3 10*3/uL (0.0-0.4); EOS % 5.9 % (1.0-4.0); HEMATOCRIT 43.8 % (42.0-52.0); LYMPH # 1.1 10*3/uL (1.3-4.4); LYMPH % 20.8 % (27.0-41.0); MEAN CELL VOLUME 98.4 fl (80.0-94.0); MEAN CORPUSCULAR HGB 33.7 pg (27.0-31.0); MEAN CORPUSCULAR HGB CONC 34.2 g/dl (33.0-37.0); MEAN PLATELET VOLUME 9.3 fl (9.6-12.3); MONO # 0.6 10*3/uL (0.1-1.0); MONO % 11.8 % (3.0-9.0); NEUT # 3.1 10*3/uL (2.3-7.9); NEUT % 59.6 % (47.0-73.0); PLATELET COUNT AUTOMATED 222 10*3/uL (130-400); RED BLOOD COUNT 4.45 10*6/uL (4.50-5.90); RED CELL DISTRI WIDTH 13.1 % (0-14.5); WHITE BLOOD COUNT 5.3 10*3/uL (4.8-10.8)
[2016-12-16 07:43] LABS: BUN 5 mg/dl (7-24); CHLORIDE 104 mmol/L (98-107); CREATININE 0.62 mg/dL (0.70-1.30); POTASSIUM 3.4 mmol/L (3.5-5.1); SODIUM 138 mmol/L (136-145)
[2016-12-16 07:59] VITALS: BP 132/74
[2016-12-16] MEDS ORDERED: FLAGYL500 MG PO (08:53)
[2016-12-16] MEDS ORDERED: Ranitidine Hyd150 MG PO (08:53)
--- NOTE | 2016-12-16 11:20 | NUR ---
Discharge instructions reviewed with patient/family. Patient receptive and verbalizes understanding. Follow-up care arranged. Written instructions given to patient/family. VIBHA OTT
== END 2016-12-16 11:20 | disposition home or self-care (01) | DRG 872 ==
LOC: ED 14:34 → EDHOLD 16:46 → 5E 16:46
PROVIDERS: Internal Medicine Gastroenterology; Nurse Practitioner Family; ADMIT Internal Medicine
PROC: 0DBL8ZX Excision of Transverse Colon, Via Natural or Artificial Opening Endoscopic, Diagnostic (ICD-10-PCS; principal; 2016-12-12)
DX: A41.9 Sepsis, unspecified organism (principal); K55.8 Other vascular disorders of intestine; J96.10 Chronic respiratory failure, unspecified whether with hypoxia or hypercapnia; K55.9 Vascular disorder of intestine, unspecified; K92.2 Gastrointestinal hemorrhage, unspecified; Z99.81 Dependence on supplemental oxygen; E87.1 Hypo-osmolality and hyponatremia; Z88.0 Allergy status to penicillin; Z98.41 Cataract extraction status, right eye; F17.200 Nicotine dependence, unspecified, uncomplicated; F10.20 Alcohol dependence, uncomplicated; J44.9 Chronic obstructive pulmonary disease, unspecified; E03.9 Hypothyroidism, unspecified; I73.9 Peripheral vascular disease, unspecified; G93.2 Benign intracranial hypertension; F41.1 Generalized anxiety disorder; E87.6 Hypokalemia; E55.9 Vitamin D deficiency, unspecified; K57.90 Diverticulosis of intestine, part unspecified, without perforation or abscess without bleeding; Z95.810 Presence of automatic (implantable) cardiac defibrillator; Z83.3 Family history of diabetes mellitus; Z83.6 Family history of other diseases of the respiratory system

== ENCOUNTER 2017-02-23 13:36 | Emergency (ER) | payer OTHER ==
[~2017-02-23] VITALS: Ht 172.7 cm; Wt 59.0 kg
[~2017-02-23 13:36] MED LIST changes: +FLAGYL500 MG PO; +Ranitidine Hyd150 MG PO
[2017-02-23 15:04] LABS: BASO # 0.1 10*3/uL (0.0-0.1); BASO % 0.8 % (0.0-1.0); EOS # 0.3 10*3/uL (0.0-0.4); EOS % 2.1 % (1.0-4.0); HEMATOCRIT 37.1 % (42.0-52.0); HEMOGLOBIN 12.8 g/dl (14.0-18.0); LYMPH # 1.9 10*3/uL (1.3-4.4); LYMPH % 13.9 % (27.0-41.0); MEAN CELL VOLUME 91.4 fl (80.0-94.0); MEAN CORPUSCULAR HGB 31.5 pg (27.0-31.0); MEAN CORPUSCULAR HGB CONC 34.5 g/dl (33.0-37.0); MEAN PLATELET VOLUME 9.4 fl (9.6-12.3); MONO # 1.1 10*3/uL (0.1-1.0); MONO % 7.8 % (3.0-9.0); NEUT # 10.1 10*3/uL (2.3-7.9); NEUT % 74.9 % (47.0-73.0); PLATELET COUNT AUTOMATED 337 10*3/uL (130-400); RED BLOOD COUNT 4.06 10*6/uL (4.50-5.90); WHITE BLOOD COUNT 13.4 10*3/uL (4.8-10.8)
[2017-02-23 15:22] LABS: ALBUMIN 3.6 gm/dl (3.1-4.5); ALKALINE PHOSPHATASE 75 U/L (45-117); BUN 17 mg/dl (7-24); CHLORIDE 104 mmol/L (98-107); CREATININE 0.91 mg/dL (0.70-1.30); POTASSIUM 3.7 mmol/L (3.5-5.1); SGOT/AST 13 IU/L (3-35); SGPT/ALT 18 U/L (12-78); SODIUM 138 mmol/L (136-145); TOTAL PROTEIN 7.6 gm/dL (6.4-8.2)
[2017-02-23] MEDS ORDERED: DOXYCYCLINE100 M3 PO (15:39)
[2017-02-23] MEDS ORDERED: ULTRAM50 MG PO (15:39)
== END 2017-02-23 16:15 | disposition home or self-care (01) ==
LOC: ED 13:36
PROVIDERS: Nurse Practitioner
DX: L03.116 Cellulitis of left lower limb (principal); F10.10 Alcohol abuse, uncomplicated; Z88.0 Allergy status to penicillin; Z79.899 Other long term (current) drug therapy; Z98.62 Peripheral vascular angioplasty status; Z72.0 Tobacco use

== ENCOUNTER 2017-07-16 07:03 | Emergency (ER) | payer OTHER ==
[~2017-07-16] VITALS: Ht 167.6 cm; Wt 63.5 kg
[~2017-07-16 07:03] MED LIST changes: +DOXYCYCLINE100 M3 PO
[2017-07-16 08:05] LABS: HEMATOCRIT 38.1 % (42.0-52.0); HEMOGLOBIN 13.3 g/dl (14.0-18.0); MEAN CELL VOLUME 92.9 fl (80.0-94.0); MEAN CORPUSCULAR HGB 32.4 pg (27.0-31.0); MEAN CORPUSCULAR HGB CONC 34.9 g/dl (33.0-37.0); MEAN PLATELET VOLUME 9.3 fl (9.6-12.3); PLATELET COUNT AUTOMATED 354 10*3/uL (130-400); WHITE BLOOD COUNT 13.7 10*3/uL (4.8-10.8)
[2017-07-16 08:19] LABS: ALBUMIN 3.3 gm/dl (3.1-4.5); ALKALINE PHOSPHATASE 54 U/L (45-117); BUN 12 mg/dl (7-24); CHLORIDE 98 mmol/L (98-107); CREATININE 0.67 mg/dL (0.70-1.30); POTASSIUM 3.5 mmol/L (3.5-5.1); SGOT/AST 13 IU/L (3-35); SGPT/ALT 15 U/L (12-78); SODIUM 134 mmol/L (136-145); TOTAL PROTEIN 7.8 gm/dL (6.4-8.2)
[2017-07-16 08:37] LABS: PLATELET SUFFICIENCY NORMAL (NORMAL); TOTAL CELLS COUNTED 100 #CELLS
[2017-07-16] MEDS ORDERED: PREDNISONE20 M1 PO (12:48)
[2017-07-16] MEDS ORDERED: VIBRAMYCIN100 MG PO ×2 (12:48→12:50)
== END 2017-07-16 12:56 | disposition home or self-care (01) ==
LOC: ED 07:03
PROVIDERS: Student in an Organized Health Care Education/Training Program
DX: J44.1 Chronic obstructive pulmonary disease with (acute) exacerbation (principal); F17.200 Nicotine dependence, unspecified, uncomplicated; I10 Essential (primary) hypertension; E03.9 Hypothyroidism, unspecified; E11.9 Type 2 diabetes mellitus without complications; I73.9 Peripheral vascular disease, unspecified; Z79.899 Other long term (current) drug therapy; Z88.0 Allergy status to penicillin; Z86.718 Personal history of other venous thrombosis and embolism; Z95.1 Presence of aortocoronary bypass graft; Z99.81 Dependence on supplemental oxygen

== ENCOUNTER → 2017-07-22 | Outpatient (CLI) | payer OTHER | END | disposition home or self-care (01) | LOC: LAB 12:52 | DX: J44.9 Chronic obstructive pulmonary disease, unspecified (principal) ==

== ENCOUNTER → 2017-08-24 | Outpatient (CLI) | payer OTHER | END | disposition home or self-care (01) | LOC: CARD 08-12 10:00 | DX: R00.1 Bradycardia, unspecified (principal) ==

== ENCOUNTER → 2017-09-09 | Outpatient (CLI) | payer OTHER ==
[2017-09-10 08:08] LABS: ALPHA-1-ANTITRYPSIN, SERUM 249 mg/dL (90-200)
== END | disposition home or self-care (01) ==
LOC: LAB 14:04
PROVIDERS: Internal Medicine Critical Care Medicine
DX: J44.9 Chronic obstructive pulmonary disease, unspecified (principal)